=== PATIENT | male | born 1965 | race Caucasian/White ===

== ENCOUNTER → 2022-09-28 15:45 | Outpatient (CLI) | payer SELFPAY ==
--- NOTE | ~2022-09-28 | XR_ITS ---
EXAMINATION: XR chest 2V Exam Date/Time: 09/28/2022 16:01 CAD DESIGNER HISTORY: Chronic pulmonary edema Comparison: None available. RESULT: Lines, tubes, and devices: None. Lungs and pleura: Low volumes, with crowding and streaky bibasilar atelectasis. Cardiomediastinal silhouette: Unremarkable. Other: No acute osseous or upper abdominal finding. IMPRESSION: No acute cardiopulmonary process. Reviewed, dictated and finalized at location K. DESIGNER
== END ==
PROVIDERS: PCP Physician Assistant; Visit Provider Physician Assistant
DX: J81.1 Chronic pulmonary edema (principal)
CPT/HCPCS: 71046

== ENCOUNTER 2024-04-09 08:40 | Outpatient (CLI) | payer SELFPAY ==
--- NOTE | 2024-04-09 | EST_ITS ---
Patient Info Name: Alan Culver Age: 58 years : 1965 Gender: Male Ht: 71 in Wt: 270 lbs BSA: 2.52 m2 HR: 80 bpm BP: 127 / 69 mmHg Heart Rhythm: Sinus Rhythm Exam Date: 04/09/2024 10:21 AM Exam Location: [facility] Patient Status: Outpatient Admit Date: 04/09/2024 Staff Ordering Physician: CaseyVanessa PA-C Attending Provider: CaseyVanessa PA-C Exercise Technologist: Svitlana Jones CT Exercise Physician: Reagan English DO Exam Type: CA stress sheree w NM Study Info Indications R07.9 - Chest pain, unspecified A regadenoson stress test was performed. Summary 1. 1. Negative lexiscan stress test for ischemic ST changes by ECG criteria. 2. 2. Stable hemodynamics throughout the test. 3. 3. Nuclear scan to follow and will be reported separately. Please correlate with it. 4. 4. Patient informed of the above results. Protocol: Lexiscan Stress ECG Details Stage: REST Duration (min): 2 min : 6 sec HR (bpm): 80 SBP (mmHg): 127 DBP (mmHg): 69 Stage: REST Duration (min): 9 min : 23 sec HR (bpm): 80 SBP (mmHg): 127 DBP (mmHg): 69 Stage: STAGE 1 Duration (min): 1 min : 0 sec HR (bpm): 102 SBP (mmHg): 148 DBP (mmHg): 78 Stage: RECOVERY Duration (min): 1 min : 0 sec HR (bpm): 102 SBP (mmHg): 148 DBP (mmHg): 78 Stage: RECOVERY Duration (min): 2 min : 0 sec HR (bpm): 93 SBP (mmHg): 148 DBP (mmHg): 78 Stage: RECOVERY Duration (min): 3 min : 0 sec HR (bpm): 89 SBP (mmHg): 110 DBP (mmHg): 70 Stage: RECOVERY Duration (min): 3 min : 3 sec HR (bpm): 90 SBP (mmHg): 110 DBP (mmHg): 70 Rest HR: 80 bpm Peak HR: 104 bpm Rest Sys BP: 127 mmHg Peak Sys BP: 148 mmHg Max Pred HR: 161 bpm % Max Pred HR: 65 % Target HR: 137 bpm Max RPP: 15,392 bpm*mmHg Termination Reason: Completed protocol Cardiac Symptoms: Shortness of breath Total Time: 1 min : 0 sec Rest Christianson BP: 69 mmHg Peak Christianson BP: 78 mmHg Total Dose: 0.4 mg Resting ECG Sinus rhythm. Stress ECG No ST changes. Arrhythmias None. Report Signatures
--- NOTE | ~2024-04-09 | NM_ITS ---
EXAMINATION: NM sheree stress w perfusion DATE: 04/09/2024 11:13 INDICATION: Atypical chest pain. TECHNIQUE: Rest images were obtained following intravenous administration of 10.1 mCi Tc99m tetrofosm in (Myoview). The patient was infused intravenously with Lexiscan (regadenoson). Then, 31.4 mCi Tc99m tetrofosmin (Myoview) was administered intravenously, and stress images were obtained. Data was phu nstructed into short axis and horizontal and vertical long axis SPECT images. Gated SPECT images were also obtained. COMPARISON: None. FINDINGS: There is no definite reversible or fixed perfusion abnormality to suggest ischemia or infar ction. There is no segmental wall motion abnormality. Left ventricular ejection fraction measures 5 6%. IMPRESSION: 1. No definite ischemia or infarct. 2. Normal left ventricular ejection fraction measuring 56%. Reviewed, dictated and finalized at location E.
== END 2024-04-09 08:41 | disposition home or self-care (01) ==
PROVIDERS: PCP Physician Assistant; Visit Provider Physician Assistant
DX: R07.89 Other chest pain (principal)
CPT/HCPCS: 78452; 93017; A9502; J2785